=== PATIENT | female | born 1975 | race Caucasian/White ===

== ENCOUNTER 2021-02-22 15:46 | Emergency (ER) | payer OTHER ==
[~2021-02-22] VITALS: Ht 167.6 cm; Wt 85.4 kg
[2021-02-22] MEDS ORDERED: NORT50CA PO (16:33)
[2021-02-22] MEDS ORDERED: IRON1TAB2 PO (16:33)
[2021-02-22] MEDS ORDERED: DESV100T3 PO (16:33)
[2021-02-22] MEDS ORDERED: LEVO100T5 PO (16:33)
[2021-02-22] MEDS ORDERED: ISOVUE-370 76% 100ML VIAL As Ordered ONE (17:31)
[2021-02-22 17:42] LABS: BASO # 0.1 10^3/uL (0.0-0.2); EOS # 0.1 10^3/uL (0.0-0.5); EOS % 1.5 % (0.0-3.0); HEMATOCRIT 40.7 % (36.0-47.0); HEMOGLOBIN 13.4 g/dl (12.0-15.5); LYMPH # 1.8 10^3/uL (1.5-5.0); LYMPH % 22.8 % (24.0-44.0); MEAN CORPUSCULAR HEMOGLOBIN 30.3 pg (27.0-33.0); MEAN CORPUSCULAR HGB CONC 32.9 g/dl (32.0-36.5); MEAN CORPUSCULAR VOLUME 92.1 fl (80.0-96.0); MONO # 0.5 10^3/uL (0.0-0.8); MONO % 5.6 % (2.0-8.0); NEUTROPHILS # 5.6 10^3/uL (1.5-8.5); NEUTROPHILS % 68.7 % (36.0-66.0); PLATELET COUNT, AUTOMATED 291 10^3/uL (150-450); RED BLOOD COUNT 4.42 10^6/uL (4.00-5.40); WHITE BLOOD COUNT 8.1 10^3/uL (4.0-10.0)
[2021-02-22 17:52] LABS: INR 0.94; PROTHROMBIN TIME 12.8 SECONDS (12.5-14.3)
[2021-02-22 17:53] LABS: PARTIAL THROMBOPLASTIN TIME 26.4 SECONDS (24.2-38.5)
[2021-02-22 17:56] LABS: CK-MB VALUE MASS < 1.0 NG/ML (<3.6); CPK CREATINE PHOSPHOKINASE 144 U/L (26-192); MB/CK RELATIVE INDEX 0.69 (< OR =4); NT-PRO BNP 38 PG/ML (<125); TROPONIN I < 0.02 NG/ML (< 0.10)
--- NOTE | 2021-02-22 18:30 | REPVR ---
PROCEDURE INFORMATION: Exam: CT Head Without And With Contrast Exam date and time: 02/22/2021 4:44 PM Age: 45 years old Clinical indication: Pain; Headache; Additional info: Left sided BANERJEE; Evaluate for bleed; ? Sinus venous thrombosis TECHNIQUE: Imaging protocol: Computed tomography of the head without and with intravenous contrast. Radiation optimization: All CT scans at this facility use at least one of these dose optimization techniques: automated exposure control; mA and/or kV adjustment per patient size (includes targeted exams where dose is matched to clinical indication); or iterative reconstruction. Contrast material: ISOVUE 370; Contrast volume: 75 ml; Contrast route: INTRAVENOUS (IV); COMPARISON: No relevant prior studies available. FINDINGS: Brain: Normal. No hemorrhage. Unremarkable white matter. No mass effect. Cerebral ventricles: No ventriculomegaly. Bones/joints: Unremarkable. No acute fracture. Paranasal sinuses: Visualized sinuses are unremarkable. No fluid levels. Mastoid air cells: Visualized mastoid air cells are well aerated. Soft tissues: Unremarkable. IMPRESSION: No acute intracranial abnormality. Electronically signed by: Alex Harmon On 02/22/2021 18:29:36 PM
[2021-02-22 19:02] VITALS: BP 138/74
--- NOTE | 2021-02-23 05:02 | ECGEPIP ---
[facility] - ED Test Date: 2021-02-22 Pat Name: MARYCRUZ LUNDY Department: Room: - Gender: Female [employer]: SANDRA : 1975 Requested By: VIDAL MERAZ Order Number: [id number] Reading MD: Mark Olson Measurements Intervals Rector Rate: 58 P: 20 NM: 164 QRS: 3 QRSD: 84 T: 65 QT: 474 QTc: 465 Interpretive Statements Sinus bradycardia POOR R WAVE PROGRESSION NO PRIORS FOR COMPARISON Electronically Signed on 02-23-2021 5:01:58 EDT by Mark Olson
== END 2021-02-22 19:36 | disposition home or self-care (01) ==
LOC: M ED 15:46
DX: R51.9 Headache, unspecified (principal); E03.9 Hypothyroidism, unspecified; R00.1 Bradycardia, unspecified; Z88.0 Allergy status to penicillin; Z79.899 Other long term (current) drug therapy
CPT/HCPCS: 36415; 70470; 80047; 81240; 82550; 82553; 83880; 84311; 84484; 85025; 85300; 85301; 85303; 85305; 85610; 85730; 86147; 93005; 99284; Q9967